=== PATIENT | female | born 1960 | race Caucasian/White ===

== ENCOUNTER → 2024-11-09 | Outpatient (CLI) | payer MEDICARE, MEDICAID, SELFPAY ==
[2024-11-09 13:05] LABS: Basophils # (Auto) 0.1 Thou/mm3 (0.0-0.2); Basophils % (Auto) 1 % (0-2.5); Eosinophils # (Auto) 0.1 Thou/mm3 (0.0-0.5); Eosinophils % (Auto) 2 % (0-10); Hematocrit 45.0 % (36.0-46.0); Hemoglobin 14.8 g/dL (12.0-16.0); Immature Granulocytes Auto 0.01 Thou/mm3 (0.00-0.00); Lymphocytes # (Auto) 2.3 Thou/mm3 (1.0-4.8); Lymphocytes % (Auto) 32 % (10-50); Mean Corpuscular HGB Conc 32.9 g/dl (31.0-37.0); Mean Corpuscular Hemoglobin 30.8 pg (25.0-35.0); Mean Corpuscular Volume 94 fL (80-100); Monocytes # (Auto) 0.9 Thou/mm3 (0.0-0.8); Monocytes % (Auto) 12 % (0-12); Neutrophils # (Auto) 3.8 Thou/mm3 (1.8-7.7); Neutrophils % (Auto) 53 % (37-80); Nucleated Red Blood Cell # 0.00 Thou/mm3 (0.00-0.00); Nucleated Red Blood Cell % 0 /100 WBC (0); Platelet Count 158 Thou/mm3 (140-440); RDW Standard Deviation 52.3 fL (36.4-46.3); Red Blood Count 4.80 Miln/mm3 (4.00-5.20); White Blood Count 7.1 Thou/mm3 (3.6-11.0)
[2024-11-09 13:11] LABS: Glucose Estimated Average 146 mg/dL (80-131); Hemoglobin A1C 6.7 % Hgb (4.8-6.0)
[2024-11-09 13:35] LABS: Alanine Aminotransferase 55 U/L (10-49); Albumin, Serum 4.1 gm/dL (3.4-4.8); Albumin/Globulin Ratio 1.5 (1.2-2.2); Alkaline Phosphatase 107 U/L (46-116); Anion Gap 11 (7-16); Aspartate Amino Transferase 58 U/L (0-34); BUN/Creatinine Ratio 30 Ratio (12-20); Bilirubin,Total 0.7 mg/dL (0.3-1.2); Blood Urea Nitrogen 15 mg/dL (9-23); Calcium 9.7 mg/dL (8.3-10.6); Calcium (Corrected) 9.7 mg/dL (8.5-10.1); Carbon Dioxide 26.5 mMol/L (20.0-31.0); Chloride 105 mMol/L (98-107); Creatinine (Component) 0.5 mg/dL (0.6-1.3); Globulin 2.7 gm/dL (2.3-3.5); Glucose 99 mg/dL (74-106); Osmolality,Calculated 283 (275-295); Potassium 4.4 mMol/L (3.4-5.1); Sodium 142 mMol/L (136-145); Total Protein 6.8 gm/dL (5.7-8.2); eGFR > 60 See Note
== END | disposition home or self-care (01) ==
PROVIDERS: Referring Provider Specialist; Visit Provider Specialist
DX: Z01.812 Encounter for preprocedural laboratory examination (principal); K59.01 Slow transit constipation; Z12.11 Encounter for screening for malignant neoplasm of colon
CPT/HCPCS: 36415; 80053; 83036; 85025

== ENCOUNTER → 2025-01-27 | Outpatient (CLI) | payer MEDICARE, MEDICAID, SELFPAY ==
--- NOTE | 2025-01-27 09:30 | XR_ITS ---
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
== END | disposition home or self-care (01) ==
LOC: SDIM 09:32
PROVIDERS: PCP Physician Assistant; Referring Provider Specialist; Visit Provider Specialist
DX: K62.3 Rectal prolapse (principal)
CPT/HCPCS: 74270; Q9963